=== PATIENT | male | born 1945 | race Caucasian/White ===

== ENCOUNTER 2019-10-10 21:54 | Inpatient (IN) | payer MEDICARE ==
[~2019-10-10] VITALS: Ht 182.9 cm; Wt 135.5 kg
[2019-10-10 22:29] LABS: BASOPHILS % (AUTO) 0.5 % (0.0-5.0); EOSINOPHILS % (AUTO) 0.3 % (0.0-8.0); HEMATOCRIT 36.7 % (42-54); LYMPHOCYTES % (AUTO) 10.2 % (21.0-51.0); MEAN CORPUSCULAR HEMOGLOBIN 29.2 pg (27.0-33.0); MEAN CORPUSCULAR VOLUME 88.4 fL (79-99); NEUTROPHILS % (AUTO) 81.6 % (40.0-77.0); PLATELET COUNT (AUTO) 336 K/uL (130-400); RED BLOOD CELL COUNT(AUTO) 4.15 MIL/uL (4.50-6.20); RED CELL DISTRIBUTION WIDTH 17.2 % (11.0-15.5); WHITE BLOOD COUNT (AUTO) 11.9 K/uL (4.8-10.8)
[2019-10-10 23:03] LABS: INR 1.35 (0.85-1.15); PARTIAL THROMBOPLASTIN TIME 30.4 SEC (26.3-35.5)
[2019-10-10 23:05] LABS: ALBUMIN 1.9 g/dL (3.5-5.0); CREATININE 1.4 mg/dL (0.5-1.5); POTASSIUM 4.1 mmol/L (3.5-5.1); TOTAL PROTEIN, SERUM 6.5 g/dL (6.0-8.3)
[2019-10-10 23:17] LABS: BILIRUBIN,TOTAL 18.3 mg/dL (0.2-1.0)
[2019-10-10 23:18] LABS: B-TYPE NATRIURETIC PEPTIDE 108 pg/mL (0-100)
[2019-10-10] MEDS ORDERED: SODIUM CHLORIDE 0.9% 250 ML IV ONE (23:31)
[2019-10-11] VITALS (13 sets, daily range): BP systolic 138–162; BP diastolic 52–75
[2019-10-11] MEDS ORDERED: ONDANSETRON HCL 4 MG/2 ML VIAL ONE (00:16)
[2019-10-11] MEDS ORDERED: MORPHINE SULFATE 4 MG/1ML SYG ONE ×2 (00:17→07:50)
[2019-10-11] MEDS ORDERED: INSULIN HUMULIN R 100 UNIT/ML 3ML ONE (00:20)
[2019-10-11] MEDS ORDERED: GLUCAGON 1MG KIT 1 MG ML IM PRN (03:00)
[2019-10-11] MEDS ORDERED: DEXTROSE 50%-WATER 50 ML DISP.SYRIN IV PRN (03:00)
[2019-10-11] MEDS ORDERED: INSULIN LISPRO 100 UNIT/ML 3ML SQ SCH (03:00)
[2019-10-11] MEDS ORDERED: ONDANSETRON HCL 4 MG/2 ML VIAL IV PRN (04:45)
[2019-10-11] MEDS ORDERED: DiphenhydrAMINE HCL 50 MG/ML VIAL IV PRN (04:45)
[2019-10-11] MEDS ORDERED: NITROGLYCERIN 0.4 MG SL TAB SL PRN (04:45)
[2019-10-11] MEDS ORDERED: ACETAMINOPHEN 325 MG TAB PO PRN ×2 (04:45)
[2019-10-11 05:20] LABS: HEMATOCRIT 34.8 % (42-54); MEAN CORPUSCULAR HEMOGLOBIN 29.4 pg (27.0-33.0); PLATELET COUNT (AUTO) 315 K/uL (130-400); RED BLOOD CELL COUNT(AUTO) 3.91 MIL/uL (4.50-6.20); RED CELL DISTRIBUTION WIDTH 17.4 % (11.0-15.5); WHITE BLOOD COUNT (AUTO) 12.2 K/uL (4.8-10.8)
[2019-10-11 05:38] LABS: INR 1.35 (0.85-1.15); PARTIAL THROMBOPLASTIN TIME 31.7 SEC (26.3-35.5)
[2019-10-11 05:42] LABS: BAND NEUTROPHILS % (MANUAL) 1 % (0-2); BASOPHILS % (MANUAL) 2 % (0-2); LYMPHOCYTES % (MANUAL) 12 % (22-44); MAN.DIFF COMMENT-IMPRESSION MANUAL DIFFERENTIAL; MONOCYTES % (MANUAL) 9 % (2-9); SEGMENTED NEUTROPHILS % 76 % (40-70)
[2019-10-11 05:43] LABS: PLATELET MORPHOLOGY COMMENT ADEQUATE
[2019-10-11 05:54] LABS: ALBUMIN 1.8 g/dL (3.5-5.0); CREATININE 1.3 mg/dL (0.5-1.5); MAGNESIUM 1.9 mg/dL (1.80-2.40); TOTAL PROTEIN, SERUM 6.2 g/dL (6.0-8.3)
[2019-10-11 05:56] LABS: BILIRUBIN,TOTAL 17.4 mg/dL (0.2-1.0)
[2019-10-11] MEDS ORDERED: FAMOTIDINE/PF 20 MG/2 ML VIAL IV ONE (08:14)
[2019-10-11] MEDS: FAMOTIDINE/PF 20 MG/2 ML VIAL IV SCH (09:00)
[2019-10-11] MEDS ORDERED: IOHEXOL-350 75 ML VIAL IV ONE (10:19)
[2019-10-11] MEDS: INSULIN LISPRO 100 UNIT/ML 3ML SQ SCH ×4 (11:30→21:58)
[2019-10-11] MEDS ORDERED: IOHEXOL-350 50ML VIAL IV ONE (11:58)
[2019-10-11] MEDS ORDERED: INDOMETHACIN 50 MG SUPP.RECT RC SCH (12:30)
[2019-10-11] MEDS ORDERED: MIDAZOLAM HCL 1 MG/ML 2ML VIAL ONE (12:35)
[2019-10-11] MEDS ORDERED: FENTANYL CITRATE PF 50 MCG/1 ML 2ML VIAL ONE (12:35)
[2019-10-11] MEDS ORDERED: LIDOCAINE HCL 2% 20ML ONE (12:35)
[2019-10-11] MEDS ORDERED: SUCCINYLCHOLINE 200MG/10ML SYR ONE (12:35)
[2019-10-11] MEDS ORDERED: PROPOFOL 10 MG/ML 20ML VIAL IV ONE (12:35)
[2019-10-11] MEDS ORDERED: PHENYLEPHRINE HCL 10 MG/ML 1ML VIAL IV ONE (12:37)
[2019-10-11] MEDS ORDERED: IPRATROPIUM/ALBUTEROL SULFATE 3 ML SOLUTION IH ONE (13:43)
[2019-10-11 14:58] LABS: APPEARANCE,URINE CLOUDY (CLEAR); BILIRUBIN,URINE LARGE (NEGATIVE); COLOR,URINE BROWN (YELLOW); GLUCOSE, URINE (UA) 250 mg/dL (NEGATIVE); KETONES,URINE 5 mg/dL (NEGATIVE); LEUKOCYTE ESTERASE ,URINE TRACE (NEGATIVE); NITRATE,URINE POSITIVE (NEGATIVE); OCCULT BLOOD,URINE NEGATIVE (NEGATIVE); PROTEIN,URINE 30 mg/dL (NEGATIVE)
--- NOTE | 2019-10-11 15:13 | NUR ---
DCP: HOME met with pt who is a Winter [place] with his Luz Elena Mao [phone]. They are staying in a mobile home until December 12 when they will return to [place]. Prior to admission pt was independent, driving, uses no DME or HH. PCP is Dr Arango and he gets meds thru the [facility]. Pt to [facility] home with . Addendum: 10/11/19 at 1522 by RANDAL MERCER SS Amended: Links added.
[2019-10-11 15:15] LABS: BACTERIA,URINE Moderate /HPF (None Seen); MUCUS,URINE Few LPF (None Seen); RBC,URINE 0-1 /HPF (0-1); SQUAMOUS EPITHELIAL CELL,UR 0-2 /HPF (0-2)
[2019-10-11] MEDS ORDERED: CARV3.12 PO (19:43)
[2019-10-11] MEDS ORDERED: ALBU6.7H9 PUFF (19:43)
[2019-10-11] MEDS ORDERED: INSLAN SQ (19:43)
[2019-10-11] MEDS ORDERED: SERT50TA12 PO (19:43)
[2019-10-11] MEDS ORDERED: MELO-108 PO (19:43)
[2019-10-11] MEDS ORDERED: MONT10TA26 PO (19:43)
[2019-10-11] MEDS ORDERED: GABA-531 PO (19:43)
[2019-10-11] MEDS ORDERED: SOTA80TA PO (19:43)
[2019-10-11] MEDS ORDERED: ASPI-555 PO (19:43)
[2019-10-11] MEDS ORDERED: APIX5TAB PO (19:43)
[2019-10-11] MEDS ORDERED: BUME2TAB5 PO (19:43)
[2019-10-11] MEDS ORDERED: BUSP10TA3 PO (19:43)
[2019-10-11] MEDS ORDERED: ATOR40TA69 PO (19:43)
[2019-10-12] VITALS: BP 128/51
[2019-10-12] MEDS: MORPHINE SULFATE 2 MG/ML 1ML SYG IVP PRN (00:17)
[2019-10-12 04:00] VITALS: BP 150/70
[2019-10-12 06:00] LABS: BASOPHILS % (AUTO) 0.4 % (0.0-5.0); EOSINOPHILS % (AUTO) 0.7 % (0.0-8.0); LYMPHOCYTES % (AUTO) 9.4 % (21.0-51.0); MEAN CORPUSCULAR HEMOGLOBIN 29.2 pg (27.0-33.0); MEAN CORPUSCULAR HGB CONC 32.5 g/dL (32.0-36.0); MEAN CORPUSCULAR VOLUME 89.8 fL (79-99); MONOCYTES % (AUTO) 7.3 % (3.0-13.0); NEUTROPHILS % (AUTO) 81.5 % (40.0-77.0); PLATELET COUNT (AUTO) 324 K/uL (130-400); RED BLOOD CELL COUNT(AUTO) 4.01 MIL/uL (4.50-6.20); RED CELL DISTRIBUTION WIDTH 17.6 % (11.0-15.5); WHITE BLOOD COUNT (AUTO) 14.1 K/uL (4.8-10.8)
[2019-10-12] MEDS: INSULIN LISPRO 100 UNIT/ML 3ML SQ SCH ×4 (06:05→19:37)
[2019-10-12 06:22] LABS: ALBUMIN 1.8 g/dL (3.5-5.0); CREATININE 1.2 mg/dL (0.5-1.5); POTASSIUM 3.8 mmol/L (3.5-5.1); TOTAL PROTEIN, SERUM 6.3 g/dL (6.0-8.3)
[2019-10-12 06:26] LABS: BILIRUBIN,TOTAL 18.8 mg/dL (0.2-1.0)
[2019-10-12] MEDS: MORPHINE SULFATE 4 MG/1ML SYG IVP PRN (07:51)
[2019-10-12] MEDS: BUSPIRONE HCL 5 MG TABLET PO SCH ×3 (07:56→19:36)
[2019-10-12] MEDS: GABAPENTIN 300 MG CAPSULE PO SCH ×3 (07:56→19:37)
[2019-10-12] MEDS: ATORVASTATIN CALCIUM 40 MG TABLET PO SCH (07:56)
[2019-10-12] MEDS: ASPIRIN 81 MG EC TAB PO SCH (07:56)
[2019-10-12] MEDS: SERTRALINE HCL 50 MG TABLET PO SCH (07:57)
[2019-10-12] MEDS: MONTELUKAST SODIUM 10 MG TAB PO SCH (07:57)
[2019-10-12 08:00] VITALS: BP 135/59
[2019-10-12] MEDS: FAMOTIDINE/PF 20 MG/2 ML VIAL IV SCH (09:00)
[2019-10-12] MEDS ORDERED: MELOXICAM 7.5 MG TABLET PO SCH (09:00)
[2019-10-12] MEDS: INSULIN GLARGINE 100 UNITS/ML 10 ML VIAL SQ SCH (09:00)
[2019-10-12] MEDS ORDERED: SOTALOL HCL 80 MG TABLET PO SCH (09:00)
[2019-10-12] MEDS ORDERED: BUMETANIDE 1 MG TAB PO SCH (09:00)
[2019-10-12] MEDS ORDERED: CARVEDILOL 3.125 MG TABLET PO SCH (09:00)
--- NOTE | 2019-10-12 11:53 | NUR ---
patient refused the blood sugar check and verbalized that he only check his sugar once in a day. notified dr. wallace about it and he said it is alright.
[2019-10-12 12:00] VITALS: BP 137/60
[2019-10-12 16:00] VITALS: BP 132/62
--- NOTE | 2019-10-12 19:37 | NUR ---
Nursing Note Pt refused blood sugar checks and night medications.
[2019-10-12 20:00] VITALS: BP 124/45
[2019-10-13] VITALS: BP 139/54
[2019-10-13] MEDS: MORPHINE SULFATE 4 MG/1ML SYG IVP PRN ×2 (01:29→06:24)
[2019-10-13 04:00] VITALS: BP 134/63
[2019-10-13 04:40] LABS: BASOPHILS % (AUTO) 0.4 % (0.0-5.0); EOSINOPHILS % (AUTO) 0.4 % (0.0-8.0); LYMPHOCYTES % (AUTO) 6.8 % (21.0-51.0); MEAN CORPUSCULAR HEMOGLOBIN 29.3 pg (27.0-33.0); MEAN CORPUSCULAR VOLUME 88.7 fL (79-99); MONOCYTES % (AUTO) 7.2 % (3.0-13.0); NEUTROPHILS % (AUTO) 84.4 % (40.0-77.0); PLATELET COUNT (AUTO) 301 K/uL (130-400); RED BLOOD CELL COUNT(AUTO) 3.72 MIL/uL (4.50-6.20); RED CELL DISTRIBUTION WIDTH 17.8 % (11.0-15.5); WHITE BLOOD COUNT (AUTO) 18.7 K/uL (4.8-10.8)
[2019-10-13 05:05] LABS: ALBUMIN 1.6 g/dL (3.5-5.0); CREATININE 1.9 mg/dL (0.5-1.5); POTASSIUM 4.5 mmol/L (3.5-5.1); TOTAL PROTEIN, SERUM 5.9 g/dL (6.0-8.3)
[2019-10-13 05:40] LABS: BILIRUBIN,TOTAL 18.7 mg/dL (0.2-1.0)
[2019-10-13] MEDS: INSULIN LISPRO 100 UNIT/ML 3ML SQ SCH ×2 (05:50→11:30)
[2019-10-13 08:00] VITALS: BP 125/51
[2019-10-13] MEDS: INSULIN GLARGINE 100 UNITS/ML 10 ML VIAL SQ SCH (09:00)
[2019-10-13] MEDS: SERTRALINE HCL 50 MG TABLET PO SCH (09:00)
[2019-10-13] MEDS: BUSPIRONE HCL 5 MG TABLET PO SCH ×4 (09:00→23:01)
[2019-10-13] MEDS: ASPIRIN 81 MG EC TAB PO SCH (09:00)
[2019-10-13] MEDS: GABAPENTIN 300 MG CAPSULE PO SCH ×3 (09:00→22:55)
[2019-10-13] MEDS: MONTELUKAST SODIUM 10 MG TAB PO SCH (09:00)
[2019-10-13] MEDS: FAMOTIDINE/PF 20 MG/2 ML VIAL IV SCH (09:00)
[2019-10-13] MEDS: ATORVASTATIN CALCIUM 40 MG TABLET PO SCH (09:00)
[2019-10-13] MEDS: SODIUM CHLORIDE 0.9% 1000ML 1,000 ML IV SCH (10:45)
[2019-10-13] MEDS ORDERED: SENNOSIDES 8.6 MG TABLET PO PRN (10:45)
[2019-10-13] MEDS ORDERED: TRAMADOL HCL 50 MG TABLET PO SCH (10:45)
[2019-10-13] MEDS: MORPHINE SULFATE 2 MG/ML 1ML SYG IVP PRN (11:32)
[2019-10-13 12:00] VITALS: BP 133/48
[2019-10-13 13:43] LABS: HEMOGLOBIN A1C 9.9 % (4.0-6.0)
[2019-10-13] MEDS: ZOSYN 3.375GM+NS 50ML 50 ML IV SCH ×2 (13:57→22:52)
[2019-10-13] MEDS ORDERED: TRAMADOL HCL 50 MG TABLET PO PRN (16:45)
[2019-10-13 16:47] LABS: ABG BASE EXCESS -3.7 mmol/L (-2.0-3.0); ABG HCO3 19.2 mmol/L (21.0-28.0); ABG OXYGEN SATURATION 94.8 % (95.0-99.0); ABG PCO2 29 mmHg (35-48)
--- NOTE | 2019-10-13 18:13 | NUR ---
patient ready to be transfer.
--- NOTE | 2019-10-13 18:13 | NUR ---
[facility]
[2019-10-13] MEDS ORDERED: VANCOMYCIN PROTOCOL PER PHARMACY IV SCH (18:15)
--- NOTE | 2019-10-13 18:44 | NUR ---
PATIENT RECEIVED TO ROOM 228 VIA BED. PT IS AAOX3 DENIES CP DENIES SOB AT THIS TIME WHILE AT REST. PATIENT IS JAUNDICED. FAMILY MEMBER IS AT BEDSIDE, TELE PACK SWITCHED OUT TO APPROPRIATE BOX. HOB UP AT 35 DEGREES. CALL LIGHT WITHIN REACH.
[2019-10-13] MEDS ORDERED: COMPOUND IV REFRIGERATED 1 EACH IVSOLN MISC PRN (18:45)
[2019-10-13] MEDS ORDERED: VANCOMYCIN 1.5 GM in SODIUM CHLORIDE 0.9% 250 ML IV SCH (19:30)
[2019-10-13 19:41] VITALS: BP 115/58
[2019-10-13] MEDS ORDERED: INSULIN GLARGINE 100 UNITS/ML 10 ML VIAL SQ SCH (20:00)
[2019-10-13 21:43] LABS: APPEARANCE,URINE CLOUDY (CLEAR); BILIRUBIN,URINE LARGE (NEGATIVE); COLOR,URINE BROWN (YELLOW); GLUCOSE, URINE (UA) 100 mg/dL (NEGATIVE); KETONES,URINE 5 mg/dL (NEGATIVE); LEUKOCYTE ESTERASE ,URINE NEGATIVE (NEGATIVE); NITRATE,URINE POSITIVE (NEGATIVE); OCCULT BLOOD,URINE TRACE-LYSED (NEGATIVE); PH,URINE 6.5 (5.0-8.0); PROTEIN,URINE 100 mg/dL (NEGATIVE)
[2019-10-13] MEDS ORDERED: LACTATED RINGERS 1000ML IV SCH ×2 (22:00→22:30)
--- NOTE | 2019-10-13 22:00 | NUR ---
UPDATE 2199 HOSPITALIST MONET AGOSTO INBOUND CUSTOMER SERVICE AGENT INFORMED ADMISSION PT STATUS ,[facility] AND LAB RESULTS. STATES WILL SEE PT AND REVIEW ORDERS. WILL CONTINUE TO MONITOR PT 2220 HARRIS CATHETER INSERTED USING STERILE TECHNIQUE WITNESS WITH SECOND NURSE MAIDA GODWIN RN
[2019-10-13 22:03] LABS: BACTERIA,URINE Moderate /HPF (None Seen)
[2019-10-13 22:04] LABS: CREATININE,URINE RANDOM 333 mg/dL (30-135); SODIUM,URINE RANDOM < 15 mmol/l (40-220)
[2019-10-13] MEDS ORDERED: LACTATED RINGERS 1000ML 2,000 ML IV ONE (22:49)
[2019-10-13] MEDS: INSULIN HUMULIN R 100 UNIT/ML 3ML SQ SCH (23:11)
[2019-10-13] MEDS: HYDROMORPHONE HCL 2 MG/ML VIAL IVP PRN (23:19)
[2019-10-14] VITALS (7 sets, daily range): BP systolic 88–160; BP diastolic 45–79
[2019-10-14] MEDS: LACTATED RINGERS 1000ML 1,000 ML IV SCH ×3 (01:09→17:23)
--- NOTE | 2019-10-14 02:30 | NUR ---
UPDATE 0230 HOSPITALIST NOTIFIED OF PT STATUS DECREASED BLOOD PRESSURE AND DECREASE URINE OUTPUT NEW ORDER FOR ABG NOW
[2019-10-14 02:48] LABS: ABG BASE EXCESS -4.8 mmol/L (-2.0-3.0); ABG HCO3 18.3 mmol/L (21.0-28.0); ABG OXYGEN SATURATION 93.6 % (95.0-99.0); ABG PCO2 29 mmHg (35-48)
[2019-10-14 04:25] LABS: BASOPHILS % (AUTO) 0.2 % (0.0-5.0); EOSINOPHILS % (AUTO) 0.2 % (0.0-8.0); HEMATOCRIT 31.5 % (42-54); LYMPHOCYTES % (AUTO) 3.1 % (21.0-51.0); MEAN CORPUSCULAR HEMOGLOBIN 29.7 pg (27.0-33.0); MEAN CORPUSCULAR HGB CONC 33.7 g/dL (32.0-36.0); MEAN CORPUSCULAR VOLUME 88.2 fL (79-99); MONOCYTES % (AUTO) 4.7 % (3.0-13.0); NEUTROPHILS % (AUTO) 89.2 % (40.0-77.0); PLATELET COUNT (AUTO) 294 K/uL (130-400); RED BLOOD CELL COUNT(AUTO) 3.57 MIL/uL (4.50-6.20); RED CELL DISTRIBUTION WIDTH 17.3 % (11.0-15.5); WHITE BLOOD COUNT (AUTO) 23.2 K/uL (4.8-10.8)
[2019-10-14 04:58] LABS: ALBUMIN 1.5 g/dL (3.5-5.0); CREATININE 3.5 mg/dL (0.5-1.5); POTASSIUM 5.1 mmol/L (3.5-5.1); THYROID STIMULATING HORMONE 0.23 uIU/mL (0.36-3.74); TOTAL PROTEIN, SERUM 5.7 g/dL (6.0-8.3); URIC ACID 5.6 mg/dL (2.6-7.2)
[2019-10-14] MEDS: LACTATED RINGERS 1000ML IV SCH (05:02)
[2019-10-14] MEDS: METRONIDAZOLE 500MG/100ML BAG 100 ML IV SCH ×3 (05:09→22:42)
[2019-10-14 05:10] LABS: BILIRUBIN,DIRECT 15.4 mg/dL (0.0-0.3)
[2019-10-14 05:12] LABS: CRP QUANTITATIVE 358.9 mg/L (0.00-9.0)
[2019-10-14] MEDS: ZOSYN 3.375GM+NS 50ML 50 ML IV SCH (06:29)
[2019-10-14] MEDS: INSULIN HUMULIN R 100 UNIT/ML 3ML SQ SCH ×4 (06:31→22:34)
[2019-10-14] MEDS: SODIUM CHLORIDE 0.9% 1000ML 1,000 ML IV SCH ×2 (06:45→23:06)
[2019-10-14] MEDS: HYDROMORPHONE HCL 2 MG/ML VIAL IVP PRN (08:36)
[2019-10-14] MEDS: MONTELUKAST SODIUM 10 MG TAB PO SCH (08:42)
[2019-10-14] MEDS: ATORVASTATIN CALCIUM 40 MG TABLET PO SCH (08:42)
[2019-10-14] MEDS: SERTRALINE HCL 50 MG TABLET PO SCH (08:42)
[2019-10-14] MEDS: DOCUSATE SODIUM 100 MG CAP PO SCH (08:42)
[2019-10-14] MEDS: MIDODRINE HCL 5 MG TABLET PO SCH ×3 (08:43→22:37)
[2019-10-14] MEDS: GABAPENTIN 300 MG CAPSULE PO SCH ×3 (08:43→22:40)
[2019-10-14] MEDS: INSULIN GLARGINE 100 UNITS/ML 10 ML VIAL SQ SCH (08:45)
[2019-10-14] MEDS: FAMOTIDINE/PF 20 MG/2 ML VIAL IV SCH (08:45)
[2019-10-14] MEDS ORDERED: ZOSYN 3.375GM+NS 50ML 50 ML IV SCH (09:00)
[2019-10-14] MEDS ORDERED: RENAL DOSE IV SCH (09:00)
[2019-10-14] MEDS ORDERED: MEROPENEM 1 GM VIAL IVP SCH (09:30)
--- NOTE | 2019-10-14 09:30 | NUR ---
DR. EDWARDS IN TO SEE PATIENT, QUESTIONS ANSWERED. PATIENT ASKED ABOUT HIS DIAGNOSIS, PLAN OF CARE...DR. EDWARDS ADDRESSED ISSUES. PATIENT WAS ASKED ABOUT ADVANCED DIRECTIVES/CODE STATUS..HE STATED HE WOULD NEED TO SPEAK WITH HIS PRIOR TO MAKE A DECISION.
[2019-10-14] MEDS: MEROPENEM 500 MG VIAL IVP SCH ×2 (10:39→18:42)
[2019-10-14] MEDS ORDERED: VANCOMYCIN 1.25 GM in SODIUM CHLORIDE 0.9% 250 ML IV SCH (13:30)
--- NOTE | 2019-10-14 13:30 | NUR ---
PATIENT AROUSES ONLY WHEN TAPPED ON SHOULDER, HE WILL OPEN EYES AND FOLLOWS COMMANDS AND THEN FALLS RIGHT BACK TO SLEEP.
--- NOTE | 2019-10-14 13:52 | NUR ---
RD NOTIFICATION DX BILIARY OBSTRUCTION, SEVERE JAUNDICE. DIET: FULL LIQUIDS WITH FLUID RESTRICTION. PO INTAKE 50% WITH STEADY APPETITE PER . S/P CABG. S/P ERCP ON 10/11/19. FINDINGS SUGGEST CHOLEDOCHOLITHIASIS, MALIGNANT STRUCTURE OF THE LIVER; S/P TEMPORARY STENT PLACEMENT. S/P BILIARY SPHINCTEROTOMY. ALTERED NUTRITION RELATED LABS REVIEWED. MEDS REVIEWED. SKIN IS INTACT. LBM: 10/13 NOTED. NO COMPLAINTS OF N/V/C/D AT THIS TIME. RD RECOMMENDS TO ADD 75GMCCD TO DIET ORDER ADD LOW FAT TO DIET ORDER MONITOR PO INTAKE AND FLUID RESTRICTION MONITOR LABS RD WILL CONTINUE TO MONITOR AND FOLLOW UP, THANK YOU. Addendum: 10/14/19 at [address] Amended: Links added.
--- NOTE | 2019-10-14 14:00 | NUR ---
IN TO SEE PATIENT, UPDATE GIVEN. SHE STATED SHE WOULD NEED TO SPEAK WITH PATIENT'S SON WHOM LIVES IN [place] FAR CODE STATUS IS CONCERNED.
[2019-10-14] MEDS: BUSPIRONE HCL 5 MG TABLET PO SCH ×2 (14:04→22:40)
--- NOTE | 2019-10-14 15:00 | NUR ---
DR. YOST IN TO SEE PATIENT, UPDATE GIVEN. DR. YOST INFORMED THAT SHE WOULD BE THE ONE MAKING DECISIONS FOR CODE STATUS SHE IS THE NEXT OF KIN AND IN ROOM PRESENTLY. CONTINUES TO STATES THAT SHE HAS BEEN TEXT MESSAGE SON IN [place] BUT HAS NOT HEARD FROM HIM.
[2019-10-15 00:03] VITALS: BP 121/52
[2019-10-15 04:07] VITALS: BP 113/61
[2019-10-15] MEDS: LACTATED RINGERS 1000ML IV SCH (04:30)
[2019-10-15] MEDS: MEROPENEM 500 MG VIAL IVP SCH ×3 (05:10→18:55)
[2019-10-15] MEDS: METRONIDAZOLE 500MG/100ML BAG 100 ML IV SCH ×3 (05:11→21:52)
[2019-10-15 05:41] LABS: BASOPHILS % (AUTO) 0.3 % (0.0-5.0); EOSINOPHILS % (AUTO) 0.8 % (0.0-8.0); HEMATOCRIT 31.9 % (42-54); LYMPHOCYTES % (AUTO) 4.8 % (21.0-51.0); MEAN CORPUSCULAR HEMOGLOBIN 29.4 pg (27.0-33.0); MEAN CORPUSCULAR HGB CONC 33.2 g/dL (32.0-36.0); MEAN CORPUSCULAR VOLUME 88.6 fL (79-99); MONOCYTES % (AUTO) 7.7 % (3.0-13.0); NEUTROPHILS % (AUTO) 83.2 % (40.0-77.0); PLATELET COUNT (AUTO) 273 K/uL (130-400); RED CELL DISTRIBUTION WIDTH 17.5 % (11.0-15.5); WHITE BLOOD COUNT (AUTO) 21.8 K/uL (4.8-10.8)
[2019-10-15] MEDS: INSULIN HUMULIN R 100 UNIT/ML 3ML SQ SCH ×4 (06:19→21:52)
[2019-10-15 06:25] LABS: ALBUMIN 1.4 g/dL (3.5-5.0); CREATININE 4.9 mg/dL (0.5-1.5); POTASSIUM 5.4 mmol/L (3.5-5.1); TOTAL PROTEIN, SERUM 5.7 g/dL (6.0-8.3)
[2019-10-15 06:29] LABS: BILIRUBIN,DIRECT 14.4 mg/dL (0.0-0.3); BILIRUBIN,TOTAL 16.7 mg/dL (0.2-1.0)
--- NOTE | 2019-10-15 07:49 | NUR ---
VANCO NOT GIVEN D/T RENAL FAILURE. NO URINE OUTPUT IN 12 HOURS.
[2019-10-15 07:50] VITALS: BP 111/52
[2019-10-15] MEDS: HYDROMORPHONE HCL 2 MG/ML VIAL IVP PRN (08:07)
[2019-10-15] MEDS: SERTRALINE HCL 50 MG TABLET PO SCH (09:00)
[2019-10-15] MEDS: INSULIN GLARGINE 100 UNITS/ML 10 ML VIAL SQ SCH (09:00)
[2019-10-15] MEDS: MONTELUKAST SODIUM 10 MG TAB PO SCH (09:00)
[2019-10-15] MEDS: ATORVASTATIN CALCIUM 40 MG TABLET PO SCH (09:00)
[2019-10-15] MEDS: GABAPENTIN 300 MG CAPSULE PO SCH ×3 (09:00→21:51)
[2019-10-15] MEDS: DOCUSATE SODIUM 100 MG CAP PO SCH (09:00)
[2019-10-15] MEDS: BUSPIRONE HCL 5 MG TABLET PO SCH ×3 (09:00→21:51)
[2019-10-15] MEDS: MIDODRINE HCL 5 MG TABLET PO SCH ×3 (09:00→21:51)
[2019-10-15 11:33] VITALS: BP 117/53
[2019-10-15] MEDS: FAMOTIDINE/PF 20 MG/2 ML VIAL IV SCH (12:45)
[2019-10-15] MEDS: SODIUM CHLORIDE 0.9% 1000ML 1,000 ML IV SCH (12:45)
--- NOTE | 2019-10-15 13:05 | NUR ---
NURSING NOTE Patient has been asleep most of the day. In AM he had minimal breakfast intake. After pain medication, he has vish asleep. Lunch tray intact. Gave only IV medications.
--- NOTE | 2019-10-15 14:51 | NUR ---
1444 gave patient BPCI Letter, Notified patient that Angela, our BPCI Coordinator, will be making contact with him within the next 90 days.
[2019-10-15 15:30] VITALS: BP 111/64
[2019-10-15] MEDS ORDERED: SODIUM POLYSTYRENE SULFONATE 15 GM/60 ML ML PO SCH (15:30)
[2019-10-15] MEDS ORDERED: SODIUM POLYSTYRENE SULFONATE 15 GM/60 ML ML ONE (17:10)
[2019-10-15 20:08] VITALS: BP 114/41
[2019-10-16 00:11] VITALS: BP 110/40
[2019-10-16] MEDS: MEROPENEM 500 MG VIAL IVP SCH ×2 (03:32→10:50)
[2019-10-16 04:12] VITALS: BP 103/41
[2019-10-16 05:32] LABS: HEMATOCRIT 29.4 % (42-54); MEAN CORPUSCULAR HEMOGLOBIN 29.2 pg (27.0-33.0); MEAN CORPUSCULAR HGB CONC 32.7 g/dL (32.0-36.0); MEAN CORPUSCULAR VOLUME 89.4 fL (79-99); NUCLEATED RED BLOOD CELLS 0.1 % (0.0-0.19); PLATELET COUNT (AUTO) 252 K/uL (130-400); RED BLOOD CELL COUNT(AUTO) 3.29 MIL/uL (4.50-6.20); RED CELL DISTRIBUTION WIDTH 17.6 % (11.0-15.5); WHITE BLOOD COUNT (AUTO) 17.6 K/uL (4.8-10.8)
[2019-10-16] MEDS: METRONIDAZOLE 500MG/100ML BAG 100 ML IV SCH (05:34)
[2019-10-16 05:54] LABS: INR 1.24 (0.85-1.15); PARTIAL THROMBOPLASTIN TIME 37.8 SEC (26.3-35.5); PROTHROMBIN TIME 12.9 SEC (9.6-11.6)
[2019-10-16 06:01] LABS: ALBUMIN 1.4 g/dL (3.5-5.0); BILIRUBIN,TOTAL 15.7 mg/dL (0.2-1.0); CREATININE 6.1 mg/dL (0.5-1.5); POTASSIUM 5.2 mmol/L (3.5-5.1); TOTAL PROTEIN, SERUM 5.6 g/dL (6.0-8.3)
[2019-10-16] MEDS: INSULIN HUMULIN R 100 UNIT/ML 3ML SQ SCH ×3 (06:36→17:14)
--- NOTE | 2019-10-16 06:44 | NUR ---
Patient lethargic. Alert to name and . Follows commands. Voice low, garbled. Currently on 2L NC, 95% sats. Denies pain. 16F jones in place, with only 50cc of tea colored urine for entire shift. Patient jaundice in color. 2+ pitting edema generalized.
[2019-10-16 07:56] VITALS: BP 111/47
[2019-10-16 08:11] LABS: HEPATITIS A ANTIBODY IGM Negative (Negative); HEPATITIS B CORE IGM Negative (Negative); HEPATITIS Bs ANTIGEN SCREEN P Negative (Negative)
[2019-10-16] MEDS: FAMOTIDINE/PF 20 MG/2 ML VIAL IV SCH (09:29)
[2019-10-16] MEDS: MIDODRINE HCL 5 MG TABLET PO SCH ×3 (09:30→21:00)
[2019-10-16] MEDS: GABAPENTIN 300 MG CAPSULE PO SCH ×3 (09:30→22:25)
[2019-10-16] MEDS: BUSPIRONE HCL 5 MG TABLET PO SCH ×3 (09:30→22:25)
[2019-10-16] MEDS: SERTRALINE HCL 50 MG TABLET PO SCH (09:30)
[2019-10-16] MEDS: MONTELUKAST SODIUM 10 MG TAB PO SCH (09:30)
[2019-10-16] MEDS: ATORVASTATIN CALCIUM 40 MG TABLET PO SCH (09:30)
[2019-10-16] MEDS: DOCUSATE SODIUM 100 MG CAP PO SCH (09:31)
[2019-10-16] MEDS: INSULIN GLARGINE 100 UNITS/ML 10 ML VIAL SQ SCH (09:32)
[2019-10-16 11:51] VITALS: BP 114/54
[2019-10-16 12:44] LABS: BILIRUBIN,URINE LARGE (NEGATIVE); GLUCOSE, URINE (UA) NEGATIVE (NEGATIVE); KETONES,URINE NEGATIVE (NEGATIVE); LEUKOCYTE ESTERASE ,URINE MODERATE (NEGATIVE); NITRATE,URINE NEGATIVE (NEGATIVE); OCCULT BLOOD,URINE LARGE (NEGATIVE); PROTEIN,URINE 100 mg/dL (NEGATIVE); SODIUM,URINE RANDOM 129 mmol/l (40-220)
[2019-10-16 12:50] LABS: APPEARANCE,URINE TURBID (CLEAR); COLOR,URINE BROWN (YELLOW)
[2019-10-16 13:02] LABS: RBC,URINE >100 /HPF (0-1)
[2019-10-16 13:03] LABS: BACTERIA,URINE Many /HPF (None Seen); MUCUS,URINE Few LPF (None Seen); SQUAMOUS EPITHELIAL CELL,UR Moderate /HPF (0-2); WBC,URINE 51-100 /HPF (0-1)
[2019-10-16 13:04] LABS: CALCIUM OXALATE CRYSTALS,UR Rare /LPF (None Seen)
[2019-10-16 13:05] LABS: AMORPHOUS SEDIMENT,UR Many /LPF (None Seen); RENAL EPITHELIAL CELLS,URINE Few /HPF (None Seen)
[2019-10-16] MEDS: CEFTRIAXONE SODIUM 2 GM VIAL IVP SCH (14:38)
[2019-10-16 15:27] VITALS: BP 110/49
[2019-10-16] MEDS: SODIUM CHLORIDE 0.9% 1000ML 1,000 ML IV SCH (16:00)
[2019-10-16 20:22] VITALS: BP 111/55
[2019-10-17] VITALS: BP 111/55
[2019-10-17 04:24] VITALS: BP 92/44
[2019-10-17] MEDS: INSULIN HUMULIN R 100 UNIT/ML 3ML SQ SCH ×3 (07:12→16:30)
[2019-10-17 08:19] VITALS: BP 91/40
[2019-10-17] MEDS: GABAPENTIN 300 MG CAPSULE PO SCH ×3 (09:23→20:33)
[2019-10-17] MEDS: MONTELUKAST SODIUM 10 MG TAB PO SCH (09:23)
[2019-10-17] MEDS: DOCUSATE SODIUM 100 MG CAP PO SCH (09:23)
[2019-10-17] MEDS: MIDODRINE HCL 5 MG TABLET PO SCH ×3 (09:23→20:32)
[2019-10-17] MEDS: BUSPIRONE HCL 5 MG TABLET PO SCH ×3 (09:23→20:32)
[2019-10-17] MEDS: SERTRALINE HCL 50 MG TABLET PO SCH (09:23)
[2019-10-17] MEDS: ATORVASTATIN CALCIUM 40 MG TABLET PO SCH (09:23)
[2019-10-17] MEDS: FAMOTIDINE/PF 20 MG/2 ML VIAL IV SCH (09:24)
[2019-10-17] MEDS: INSULIN GLARGINE 100 UNITS/ML 10 ML VIAL SQ SCH (09:29)
[2019-10-17] MEDS: HYDROMORPHONE HCL 2 MG/ML VIAL IVP PRN (09:36)
--- NOTE | 2019-10-17 10:00 | NUR ---
DYSPHAGIA EVAL COMPLETED. RECOMMEND FULL LIQUID DIET; PILLS CRUSHED WITH APPLESAUCE. RECOMMENDATIONS: 1. SKILLED SPEECH THERAPY 2-3XWK TARGETING SWALLOWING. DYSPHAGIA THERAPY 3-5X WEEK TO INCREASE ORAL MOTOR STRENGTH AND PHARYNGEAL SWALLOW: LTG#1: Pt WILL TOLERATE LEAST RESTRICTIVE DIET TO MEET NUTRITION/HYDRATION WITH NO S/S OF ASPIRATION. LTG#2: SKILLED EDUCATION Pt/FAMILY/STAFF STG#1: Pt WILL PARTICIPATE IN LARYNGEAL ELEVATION/EXCURSION EXERCISES WITH 80% ACCURACY. STG#2: Pt WILL PARTICIPATE IN TONGUE BASE RETRACTION EXERCISES WITH 80% ACCURACY. STG#3: Pt WILL PARTICIPATE IN ORAL MOTOR EXERCISES WITH 80% ACCURACY. STG#4: Pt WILL TOLERATE FULL LIQUID DIET WITH NO OVERT S/S OF ASPIRATION. STG#5: PT WILL TOLERATE THERAPEUTIC TRIALS OF ADVANCED TEXTURES OF MECHANICAL SOFT/CHOPPED WITH NO OVERT S/S OF ASPIRATION. STG#6: SKILLED EDUCATION Pt/FAMILY/STAFF. Addendum: 10/17/19 at [address] Amended: Links added.
--- NOTE | 2019-10-17 10:21 | NUR ---
Palliative Care Sw met with pt and Luz Elena. Luz Elena placed pt's hearing aids in so that he could hear conversation. Sw educated pt and on Dr De León and reason for consult. states that she has been in contact with pt's son Yuan earlier this week. Son was running a low grade temp and could not fly, so he was going to drive here from [place]. She has not hear from son again, and he is not answering calls or text. Sw asked pt, about could status. Pt stated he wanted to be resuscitated in event of cardiac arrest. Pt told , "Wait for Yuan". Discussed hospice, inpt hosipce and hospice homes. Pt again said, "wait for Yuan". left another message for son on his cell, states she needed him to call her kevyn. Waiting for response.
[2019-10-17 12:14] VITALS: BP 105/52
[2019-10-17] MEDS: SODIUM CHLORIDE 0.9% 1000ML 1,000 ML IV SCH (12:23)
[2019-10-17] MEDS: CEFTRIAXONE SODIUM 2 GM VIAL IVP SCH (14:31)
--- NOTE | 2019-10-17 14:56 | NUR ---
RD Follow Up Pt with high nutrition risk secondary to metastatic CA, poor candidate for Dialysis per MD. Recommend to continue with Renal Diet. Pt currently with fluctuating PO intake. Rec to add Nepro QD. RD to continue supportive POC measures. Please notify as concerns arise. Addendum: 10/17/19 at [address] Amended: Links added.
[2019-10-17 16:35] VITALS: BP 91/48
[2019-10-17 20:19] VITALS: BP 94/44
--- NOTE | 2019-10-17 20:30 | NUR ---
savita at bedside savita at bedside to sign dnr paperwork, explained what form meant , verbalized understanding and had no issues completing form and signing.
--- NOTE | 2019-10-17 22:00 | NUR ---
phone # [phone] leaving for the night, informed her of pending transfer to [facility]
[2019-10-18 00:04] VITALS: BP 99/42
--- NOTE | 2019-10-18 00:20 | NUR ---
patient transfer patient transferred via bed to room #324. patient belongings taken with patient. report given to kel virgen) RN all questions answered savita aware of pending transfer prior to her departure
[2019-10-18] MEDS ORDERED: HYDROMORPHONE HCL 0.5 MG/0.5 ML ML ONE (00:26)
[2019-10-18] MEDS: SODIUM CHLORIDE 0.9% 1000ML 1,000 ML IV SCH ×2 (00:40→13:26)
[2019-10-18 03:57] VITALS: BP 85/41
[2019-10-18] MEDS: INSULIN HUMULIN R 100 UNIT/ML 3ML SQ SCH ×3 (06:03→13:26)
[2019-10-18 08:02] VITALS: BP 104/50
[2019-10-18] MEDS: INSULIN GLARGINE 100 UNITS/ML 10 ML VIAL SQ SCH (09:00)
[2019-10-18] MEDS: GABAPENTIN 300 MG CAPSULE PO SCH ×2 (09:00→13:26)
[2019-10-18] MEDS: SERTRALINE HCL 50 MG TABLET PO SCH (09:00)
[2019-10-18] MEDS: BUSPIRONE HCL 5 MG TABLET PO SCH ×2 (09:00→13:26)
[2019-10-18] MEDS: DOCUSATE SODIUM 100 MG CAP PO SCH (09:00)
[2019-10-18] MEDS: ATORVASTATIN CALCIUM 40 MG TABLET PO SCH (09:00)
[2019-10-18] MEDS: MIDODRINE HCL 5 MG TABLET PO SCH ×2 (09:00→13:26)
[2019-10-18] MEDS: MONTELUKAST SODIUM 10 MG TAB PO SCH (09:00)
[2019-10-18] MEDS: FAMOTIDINE/PF 20 MG/2 ML VIAL IV SCH (09:00)
[2019-10-18 09:15] LABS: HEMATOCRIT 28.1 % (42-54); MEAN CORPUSCULAR HGB CONC 32.7 g/dL (32.0-36.0); MEAN CORPUSCULAR VOLUME 88.6 fL (79-99); NUCLEATED RED BLOOD CELLS 0.1 % (0.0-0.19); PLATELET COUNT (AUTO) 240 K/uL (130-400); RED BLOOD CELL COUNT(AUTO) 3.17 MIL/uL (4.50-6.20); RED CELL DISTRIBUTION WIDTH 17.5 % (11.0-15.5); WHITE BLOOD COUNT (AUTO) 19.2 K/uL (4.8-10.8)
[2019-10-18] MEDS: HYDROMORPHONE HCL 2 MG/ML VIAL IVP PRN (09:49)
[2019-10-18 09:50] LABS: ALBUMIN 1.3 g/dL (3.5-5.0); BILIRUBIN,TOTAL 15.3 mg/dL (0.2-1.0); POTASSIUM 5.6 mmol/L (3.5-5.1); TOTAL PROTEIN, SERUM 5.7 g/dL (6.0-8.3)
[2019-10-18 09:53] LABS: CREATININE 8.3 mg/dL (0.5-1.5)
--- NOTE | 2019-10-18 10:08 | NUR ---
INPT HOSPICE VS HOSPICE with PLACEMENT SW met with at bedside who informed that pt was now in Inpt Hospice. Sw reviewed chart and there was no order for GIP hospice nor comfort measures. SW spoke to SOTERO Skinner and informed of need for order to begin referral process. ALESIA met with who is agreeable to referral to [facility] and Dr Jaimes will follow pt. SW spoke to Maday and made referral, also faxed pt information to office. Maday is here reviewing paperwork, assessing pt and talking to . Maday to determine if pt meet s criteria for inpt or not.
[2019-10-18 12:00] VITALS: BP 96/50
[2019-10-18] MEDS: CEFTRIAXONE SODIUM 2 GM VIAL IVP SCH (13:26)
--- NOTE | 2019-10-18 14:28 | NUR ---
INPT HOSPICE Sw recd call from [place], pt has been admitted to [facility]. Per Diane, pt does not have long to live.
== END 2019-10-18 12:44 | disposition hospice, inpatient (51) | DRG 871 ==
LOC: EDH 21:54 → EDHIP 10-11 00:45 → 3CH 10-11 18:10 → 2DH 10-13 18:44 → 3DH 10-18 00:24
PROVIDERS: ADMIT Internal Medicine; ATTEND Internal Medicine
PROC: 0FC98ZZ Extirpation of Matter from Common Bile Duct, Via Natural or Artificial Opening Endoscopic (ICD-10-PCS; principal; 2019-10-11)
PROC: 0F778DZ Dilation of Common Hepatic Duct with Intraluminal Device, Via Natural or Artificial Opening Endoscopic (ICD-10-PCS; 2019-10-11)
DX: A41.50 Gram-negative sepsis, unspecified (principal); G92 Toxic encephalopathy; E87.1 Hypo-osmolality and hyponatremia; E87.4 Mixed disorder of acid-base balance; N39.0 Urinary tract infection, site not specified; E44.0 Moderate protein-calorie malnutrition; C22.1 Intrahepatic bile duct carcinoma; C78.00 Secondary malignant neoplasm of unspecified lung; K80.31 Calculus of bile duct with cholangitis, unspecified, with obstruction; Z68.41 Body mass index [BMI] 40.0-44.9, adult; N17.9 Acute kidney failure, unspecified; R65.20 Severe sepsis without septic shock; E11.65 Type 2 diabetes mellitus with hyperglycemia; E66.01 Morbid (severe) obesity due to excess calories; D64.9 Anemia, unspecified; E11.22 Type 2 diabetes mellitus with diabetic chronic kidney disease; E78.5 Hyperlipidemia, unspecified; E87.5 Hyperkalemia; F32.9 Major depressive disorder, single episode, unspecified; G89.3 Neoplasm related pain (acute) (chronic); I12.9 Hypertensive chronic kidney disease with stage 1 through stage 4 chronic kidney disease, or unspecified chronic kidney disease; I25.10 Atherosclerotic heart disease of native coronary artery without angina pectoris; J44.9 Chronic obstructive pulmonary disease, unspecified; K21.9 Gastro-esophageal reflux disease without esophagitis; K75.89 Other specified inflammatory liver diseases; N18.9 Chronic kidney disease, unspecified; R09.02 Hypoxemia; Z51.5 Encounter for palliative care; K83.8 Other specified diseases of biliary tract; Z96.653 Presence of artificial knee joint, bilateral; Z74.01 Bed confinement status; Z95.1 Presence of aortocoronary bypass graft; Z95.0 Presence of cardiac pacemaker; Z85.05 Personal history of malignant neoplasm of liver; Z88.8 Allergy status to other drugs, medicaments and biological substances; Z83.3 Family history of diabetes mellitus; Z82.49 Family history of ischemic heart disease and other diseases of the circulatory system; Z66 Do not resuscitate
CPT/HCPCS: 36415; 36600; 43264; 43274; 71045; 74170; 74330; 76705; 80048; 80053; 80074; 80076; 81001; 82140; 82150; 82378; 82435; 82550; 82570; 82803; 82947; 82948; 83036; 83605; 83690; 83735; 83880; 83930; 83935; 84132; 84145; 84295; 84300; 84443; 84484; 84550; 85018; 85025; 85027; 85610; 85730; 86140; 86316; 87040; 87077; 87088; 87186; 88108; 88160; 92610; 93005; 94640; 97039; A4344; C1769; C1773; G0378; J0330; J0696; J1170; J1815; J2185; J2250; J2270; J2370; J2405; J2543; J2704; J3010; J3370; J3490; J7030; J7120; Q9967

== ENCOUNTER 2019-10-18 12:45 | Inpatient (IN) | payer OTHER ==
[~2019-10-18] VITALS: Ht 182.9 cm; Wt 126.1 kg
[~2019-10-18 12:45] MED LIST: ALBU6.7H9 PUFF; ASPI-555 PO; ATOR40TA69 PO; BUSP10TA3 PO; GABA-531 PO; INSLAN SQ; MELO-108 PO; MONT10TA26 PO; SERT50TA12 PO
--- NOTE | 2019-10-18 15:00 | NUR ---
Pt. under new account due to switch to inpt. hospice. Please see old account for admission and other information.
[2019-10-18] MEDS ORDERED: GLYCOPYRROLATE 1 MG/5 ML SYRINGE IV PRN (19:00)
[2019-10-18] MEDS ORDERED: HYDROMORPHONE HCL 0.5 MG/0.5 ML ML IVP PRN (19:00)
[2019-10-18] MEDS ORDERED: ONDANSETRON HCL 4 MG/2 ML VIAL IVP PRN (19:00)
[2019-10-18] MEDS ORDERED: BISACODYL 10 MG SUPP.RECT RC PRN (19:00)
[2019-10-18] MEDS ORDERED: ACETAMINOPHEN 650 MG SUPPOSITORY RC PRN (19:00)
[2019-10-19 00:48] VITALS: BP 101/58
[2019-10-19] MEDS: HYDROMORPHONE HCL 0.5 MG/0.5 ML ML IVP PRN ×2 (05:58→15:25)
[2019-10-19 08:16] VITALS: BP 90/52
--- NOTE | 2019-10-19 12:43 | NUR ---
FOLLOW UP COMPLETED. COPING MACHINE ASSEMBLER COORDINATED WITH NURSE MARSHALL. PATIENT IS CURRENTLY NPO; INPATIENT HOSPICE. Addendum: 10/19/[address] NENA CROSS Amended: Links added.
[2019-10-19 19:29] VITALS: BP 97/52
--- NOTE | 2019-10-19 20:00 | NUR ---
ASSESS PT IN PT HOSPICE ON COMFORT MEASURES. FAIRLY ASLEEP WITH STEADY BREATHING. NO DISTRESS NOTED. KEPT COMFROTALBE WITH HOB ELEVATED. FAMILY AT BEDSIDE BUT STATED WILL NOT STAY THE NIGHT.
--- NOTE | 2019-10-19 22:00 | NUR ---
ROUNDS NO CHANGE IN PT'S CONDITION. RESTING WELL. NO S/SX OF DISTRESS NOTED. WILL CONTINUE TO MONITOR.
--- NOTE | 2019-10-20 01:25 | NUR ---
ROUNDS STATUS QUO. WILL MONITOR CLOSELY. ORAL CARE DONE.
[2019-10-20] MEDS: HYDROMORPHONE HCL 0.5 MG/0.5 ML ML IVP PRN ×2 (06:02→15:18)
--- NOTE | 2019-10-20 06:02 | NUR ---
MEDS PT NOTED TO BE HAVING LABORED BREATHING. MEDICATED WITH DILAUDID IV. WILL RE-ASSESS PT.
[2019-10-20 07:59] VITALS: BP 77/35
--- NOTE | 2019-10-20 16:25 | NUR ---
PATIENT FOUND TO BE WITH AGONAL BREATHING. KATTY MERINO AND I ASSESSED THE PATIENT. NO PULSE, NO B/P. BENJIE RUSSO MOLDING PLASTERER HERE TO PRONOUNCE . THA VIVAS AT BEDSIDE. ALLOWED PRIVACY TO SPOUSE. PRONOUNCED DETH AT 1625.
== END 2019-10-20 16:24 | disposition expired | DRG 436 ==
LOC: 3DH 12:45
PROVIDERS: ADMIT Internal Medicine; ATTEND Internal Medicine
DX: C25.9 Malignant neoplasm of pancreas, unspecified (principal); R17 Unspecified jaundice; C78.7 Secondary malignant neoplasm of liver and intrahepatic bile duct; C24.9 Malignant neoplasm of biliary tract, unspecified; Z51.5 Encounter for palliative care; D64.9 Anemia, unspecified; I25.10 Atherosclerotic heart disease of native coronary artery without angina pectoris; R62.7 Adult failure to thrive; Z66 Do not resuscitate; Z88.8 Allergy status to other drugs, medicaments and biological substances
CPT/HCPCS: G0378; J1170